=== PATIENT | female | born 1950 | race Caucasian/White ===

== ENCOUNTER 2016-11-19 14:55 | Emergency (ER) | payer OTHER ==
[2016-11-19 15:01] VITALS: BP 162/97; PULSE 94; TEMP 98.1; BMI 28.2
[2016-11-19] MEDS ORDERED: ACETAMINOPHEN 325 MG TABLET (FP) PO ONE (15:21)
[2016-11-19] MEDS ORDERED: DIPHTH,PERTUSS(ACELL),TET 0.5 ML DISP.SYRIN IM ONE (15:21)
[2016-11-19] MEDS ORDERED: BACITRACIN 30 GM TUBE TOPICAL OINTMENT TP ONE (15:23)
--- NOTE | 2016-11-19 15:26 | PDOC ---
History of Present Illness - General Chief Complaint: Injury Stated Complaint: FALL Time Seen by Provider: 11/19/16 15:05 History Source: Patient Exam Limitations: No Limitations - History of Present Illness Initial Comments: 11/19/16 15:21 66 yr female with c/o trip and fall outside her home on the concrete working in the garden. Pt hit the right side of her face, right elbow and wrist. No LOC, no nausea or vomiting, no medical history or allergies. tetanus is unknown. 11/19/16 16:12 Past History - Past Medical History Allergies/Adverse Reactions: Allergies Allergy/AdvReac Type Severity Reaction Status Date / Time No Known Allergies Allergy Verified 11/19/16 14:59 Home Medications: Ambulatory Orders NK [No Known Home Medication] 11/19/16 Other medical history: denies - Psycho/Social/Smoking Cessation Hx Anxiety: No Suicidal Ideation: No Smoking History: Never smoked Have you smoked in the past 12 months: No Information on smoking cessation initiated: No Hx Alcohol Use: No Drug/Substance Use Hx: No Substance Use Type: None Hx Substance Use Treatment: No Trauma Specific PMHX - Complaint Specific PMHX Arthritis: No Back Injury: No Neck Injury: No Hx Sacro Iliac Joint Dysfunction: No Review of Systems - Review of Systems Able to Perform ROS?: Yes Is the patient limited [place] proficient: No Constitutional: No: Symptoms Reported HEENTM: No: Symptoms Reported Respiratory: No: Symptoms reported Cardiac (ROS): No: Symptoms Reported ABD/GI: No: Symptoms Reported : No: Symptoms Reported Musculoskeletal: Yes: Symptoms Reported, See HPI Integumentary: Yes: See HPI *Physical Exam - Vital Signs Last Vital Signs Temp Pulse Resp BP Pulse Ox 98.1 F 94 H 18 162/97 100 11/19/16 14:59 11/19/16 14:59 11/19/16 14:59 11/19/16 14:59 11/19/16 14:59 - Physical Exam General Appearance: Yes: Nourished HEENT: positive: EOMI, TOO, TMs Normal, Other (abrasion to right ear antihelix , no active bleeding ) Neck: positive: Supple. negative: Tender, Tender lateral, Tender midline Respiratory/Chest: positive: Lungs Clear, Normal Breath Sounds. negative: Chest Tender Cardiovascular: positive: Regular Rhythm, Regular Rate Extremity: positive: Normal Capillary Refill, Tender (distal radiius, lateral elbow , nv intact limited ROM due to pain , no deformity ) Integumentary: positive: Other (abrasion right cheek, right side forehead into hairline with abrasion ) Neurologic: positive: Fully Oriented, Alert, Normal Mood/Affect, Normal Response , Motor Strength 10/02 ED Treatment Course - RADIOLOGY Radiology Studies Ordered: Category Date Time Status ELBOW-RIGHT [RAD] Stat Radiology 11/19/16 15:21 Ordered WRIST- RIGHT [RAD] Stat Radiology 11/19/16 15:21 Ordered Medical Decision Making - Medical Decision Making 11/19/16 15:22 cc: trip and fall mechanical fall pt denies dizzyness, no headache no chest pain no nausea or LOC abrasions to the right side of face, right elbow no deformity no swelling nv intact pt is not taking any blood thinners, has no medical history, no LOC no headache or nausea or dizzyness , no indication to do head ct at this time, I have discussed in detail head injury precatuitions and follow up inst with the pt and her daughter will update tetanus, clean wounds bacitracin 11/19/16 15:24 11/19/16 15:30 11/19/16 15:35 11/19/16 16:15 xray s reviewed a copy has been given to the pt so she can follow up regarding the indicental findings. no fractures noted. pt denies headache or dizzyness. I have discussed the dc inst with pt who lives with her and her daughter. Pt aware to return if worse and to follow up with her PMD. all questions asked and answered at discharge. *DC/Admit/Observation/Transfer Diagnosis at time of Disposition: Multiple abrasions Sprain of wrist Qualifiers: Encounter type: initial encounter Laterality: right Qualified Code(s): S63.501A - Unspecified sprain of right wrist, initial encounter - Discharge Dispostion Disposition: HOME Condition at time of disposition: Fair - Referrals Referrals: Papa Whitley MD [Primary Care Provider] - Saravanan Shaw MD [Staff Physician] - - Patient Instructions Printed Discharge Instructions: DI for Closed Head Injury Additional Instructions: keep abrasions clean and dry soap and water bacitracin once or twice a day take tylenol 650mg every 4-6hrs for pain as needed ice to right wrist every 2hrs for 20 minutes for the next 2 days while awake follow with the orthopedist in regards to the incidental findings on xray (cyst on hand bone) follow with your doctor in 24-48hrs for follow up or return to ER for any changes in condition or any worsening symptoms
[2016-11-19] MEDS ORDERED: ACETAMINOPHEN 325 MG TABLET (FP) ONE (15:28)
== END 2016-11-19 16:50 | disposition home or self-care (01) ==
LOC: JERFT 14:55
PROC: 3E0234Z Introduction of Serum, Toxoid and Vaccine into Muscle, Percutaneous Approach (ICD-10-PCS; principal; 2016-11-19)
DX: S63.501A Unspecified sprain of right wrist, initial encounter (principal); W18.39XA Other fall on same level, initial encounter; Y93.H2 Activity, gardening and landscaping; Y92.007 Garden or yard of unspecified non-institutional (private) residence as the place of occurrence of the external cause
CPT/HCPCS: 73070-TC-RT; 73110-TC-RT; 90715; 99281-25